=== PATIENT | female | born 1970 | race Caucasian/White ===

== ENCOUNTER → 2017-05-21 | Outpatient (CLI) | payer OTHER ==
--- NOTE | 2017-05-21 08:33 | REP ---
Clinical: Abnormal thyroid function tests. Technique: Real time guan scale and color evaluation using linear high frequency and curved array transducers. Findings: The thyroid gland is essentially normal in contour, size, echogenicity, and overall appearance. Right lobe measures 5.7 x 2.4 x 1.4 cm and includes 3.4 mm simple cyst. Left lobe measures 4.8 x 1.8 x 1.9 cm without cyst or nodule. Isthmus measures 2.8 mm in width. Impression: Essentially normal thyroid ultrasound. Signed by Jerry Lucas MD 05/21/2017 08:25 A
== END ==
LOC: M RAD 06:44
PROVIDERS: ATTEND Nurse Practitioner Family
DX: R94.6 Abnormal results of thyroid function studies (principal)

== ENCOUNTER → 2017-08-29 | Outpatient (CLI) | payer OTHER ==
--- NOTE | 2017-08-29 08:26 | REP ---
Clinical: Neck pain. Technique: AP, lateral, flexion/extension, open-mouth, bilateral oblique views of the cervical spine. Findings: No acute fracture / compression injury or subluxation. Alignment and lordosis maintained. Mild degenerative disc osteophyte complex at the C4-5 level and mild minimal disc space narrowing at the C5-6 and C6-7 levels suggested. Open mouth view demonstrates normal C1-C2 articulation and odontoid process. Oblique views demonstrate patent neural foramen. Spinous processes are intact. Prevertebral soft tissues are normal. Impression: Mild/minimal degenerative changes at C4-5 through C6-7. Signed by Jerry Lucas MD 08/29/2017 08:17 A
== END ==
LOC: M RAD 02:45
PROVIDERS: ATTEND Nurse Practitioner Family
DX: M54.5 Low back pain (principal)